=== PATIENT | female | born 1995 | race Caucasian/White ===

== ENCOUNTER 2016-08-05 05:42 | Emergency (ER) | payer MEDICARE, OTHER ==
[~2016-08-05] VITALS: Ht 157.5 cm; Wt 80.0 kg
[~2016-08-05 05:42] MED LIST: PRED1 PO
[2016-08-05] MEDS ORDERED: SEVE800T PO (05:54)
[2016-08-05] MEDS ORDERED: KETOROLAC TROMETHAMINE 30 MG/ML VIAL IVP ONE (06:30)
[2016-08-05 06:32] LABS: BASOPHILS # (AUTO) 0.03 K/uL (0.00-0.20); BASOPHILS % (AUTO) 0.5 % (0.0-2.0); EOSINOPHILS # (AUTO) 0.15 K/uL (0.00-0.70); EOSINOPHILS % (AUTO) 2.22 % (1.0-6.0); HEMATOCRIT 32.6 % (36-46); HEMOGLOBIN 11.1 g/dL (12.0-16.0); LYMPHOCYTES # (AUTO) 1.9 K/uL (1.0-4.8); LYMPHOCYTES % (AUTO) 28.6 % (22.0-44.0); MEAN CORPUSCULAR HEMOGLOBIN 31.5 pg (26.0-34.0); MEAN CORPUSCULAR HGB CONC 34.2 G/dL (31.0-37.0); MEAN CORPUSCULAR VOLUME 92 fL (80-100); MONOCYTES # (AUTO) 0.5 K/uL (0.1-1.0); NEUTROPHILS # (AUTO) 4.2 K/uL (1.8-7.7); NEUTROPHILS % (AUTO) 61.8 % (40.0-70.0); PLATELET COUNT (AUTO) 185 K/uL (150-450); RED BLOOD CELL COUNT(AUTO) 3.53 MIL/uL (4.00-5.20); RED CELL DISTRIBUTION WIDTH 14.9 % (11.5-14.5); WHITE BLOOD COUNT (AUTO) 6.8 K/uL (4.5-11.0)
[2016-08-05 06:40] LABS: CALCIUM, TOTAL 8.5 mg/dL (8.8-10.5); CREATININE 9.59 mg/dL (0.60-1.30)
[2016-08-05 06:46] LABS: ALBUMIN 3.4 g/dL (3.4-5.0); BILIRUBIN,TOTAL 0.2 mg/dL (0.1-1.0); TOTAL PROTEIN, SERUM 7.1 g/dL (6.4-8.2)
[2016-08-05 07:16] VITALS: BP 109/67
== END 2016-08-05 07:31 | disposition home or self-care (01) ==
LOC: EMS 05:43
DX: N18.6 End stage renal disease (principal); Z99.2 Dependence on renal dialysis; Z91.09 Other allergy status, other than to drugs and biological substances
CPT/HCPCS: 36415; 80053; 83690; 84703; 85025; 96374; 99284; J1885